=== PATIENT | female | born 1955 | race African-American/Black ===

== ENCOUNTER → 2018-08-16 | Outpatient (CLI) | payer OTHER | END | disposition home or self-care (01) | LOC: NUCLEAR 10:00 | DX: M81.0 Age-related osteoporosis without current pathological fracture (principal); I87.2 Venous insufficiency (chronic) (peripheral); I73.9 Peripheral vascular disease, unspecified ==

== ENCOUNTER 2018-08-30 11:47 | Outpatient (CLI) | payer OTHER | END 2018-08-30 11:52 | disposition home or self-care (01) | LOC: RAD 501 11:47 | DX: M79.643 Pain in unspecified hand (principal) ==

== ENCOUNTER 2019-06-03 08:39 | Outpatient (CLI) | payer OTHER ==
[~2019-06-03 08:39] MED LIST: AMLODIPINE BESY10 MG; ASA81 MG; ATORVASTATIN CA40 MG; CALTRATE 600+D1 EAC1; LABETALOL HCL200 MG; LISINOPRIL20 MG; MECLIZINE HCL25 M1; OMEPRAZOLE20 M1
== END 2019-06-03 08:46 | disposition home or self-care (01) ==
LOC: SONOGRAMA 08:39
DX: N18.2 Chronic kidney disease, stage 2 (mild) (principal)

== ENCOUNTER 2019-06-03 10:03 | Outpatient (CLI) | payer OTHER | END 2019-06-03 10:15 | disposition home or self-care (01) | LOC: LAB 10:03 | DX: N18.1 Chronic kidney disease, stage 1 (principal) ==